=== PATIENT | female | born 1975 | race Caucasian/White ===

== ENCOUNTER 2016-12-30 21:42 | Emergency (ER) | payer BC ==
[~2016-12-30] VITALS: Ht 165.1 cm; Wt 108.9 kg
[2016-12-30] MEDS ORDERED: NKM (22:03)
[2016-12-30 22:05] VITALS: BP 118/80
--- NOTE | 2016-12-30 22:19 | Emergency Room Report ---
History of Present Illness General Chief Complaint: Multiple Trauma/Fall Source: Patient Present Illness HPI This is a 41-year-old male who has no significant past medical history. She presents with chief complaint of head injury. She was working outside and sit down a flight of stairs. Hit her head against the steps. No loss of consciousness. Onset was acute and occurred about an hour ago. No fever chills but no nausea vomiting. No other injury. Pain is 8/10. Not on blood thinner. Allergies: Coded Allergies: No Known Allergies (Unverified , 12/30/16) Patient History Past Medical History: see triage record, old chart reviewed Past Surgical History: none Pertinent Family History: none Social History: Denies: smoking Last Menstrual Period: 2 weeks ago Now: No Immunizations: other Reviewed Nursing Documentation: PMH: Agreed, PSxH: Agreed Nursing Documentation-PMH Past Medical History: No Stated History Review of Systems Eye: Denies: blurred vision, eye pain ENT: Denies: ear pain, nose congestion, throat swelling Respiratory: Denies: cough, shortness of breath Cardiovascular: Denies: chest pain, palpitations Gastrointestinal: Denies: abdominal pain, diarrhea, nausea, vomiting Musculoskeletal: Denies: back pain, joint pain Skin: Denies: rash Neurological: Reports: headache, Denies: numbness Endocrine: Denies: increased thirst, increased urine Hematologic/Lymphatic: Denies: easy bruising All Other Systems: negative except mentioned in HPI Physical Exam Vital Signs Date Time Temp Pulse Resp B/P Pulse Ox O2 Delivery O2 Flow Rate FiO2 12/30/16 21:56 97.9 75 16 118/80 98 Room Air vitals normal Sp02 EP Interpretation: reviewed, normal General Appearance: well appearing, no apparent distress, alert Head: normocephalic, other - Abrasion to the right parieto-occipital area. No hematoma. No laceration. Eyes: bilateral eye EOMI, bilateral eye PERRL ENT: hearing grossly normal, normal pharynx Neck: full range of motion, supple, no meningismus Respiratory: chest non-tender, lungs clear, normal breath sounds Cardiovascular #1: regular rate, rhythm, no murmur Gastrointestinal: normal bowel sounds, non tender, no mass, no organomegaly, no bruit, non-distended Musculoskeletal: back normal, gait/station normal, normal range of motion Psychiatric: mood/affect normal Skin: warm/dry Medical Decision Making Diagnostic Impression: Primary Impression: Head injury, acute, without loss of consciousness Qualified Codes: S09.90XA - Unspecified injury of head, initial encounter ER Course Patient presents with head injury and mild contusion. No fracture dislocation. No bleeding. We'll discharge home. CT/MRI/US Diagnostic Results CT/MRI/US Diagnostic Results : Imaging Test Ordered: CT head Impression negative per radiologist. Last Vital Signs Date Time Temp Pulse Resp B/P Pulse Ox O2 Delivery O2 Flow Rate FiO2 12/30/16 21:56 97.9 75 16 118/80 98 Room Air Status: improved Disposition: HOME, SELF-CARE Condition: Stable Scripts Ibuprofen* (MOTRIN*) 600 Mg Tablet 600 MG ORAL THREE TIMES A DAY, #30 TAB 0 Refills Prov: MATILDE LEMONS M.D. 12/30/16 Additional Instructions: Followup with your DrJustin in 7 days. Return if symptom worsen. MATILDE LEMONS M.D. Dec 30, 2016 22:19
[2016-12-30] MEDS ORDERED: Norco 5mg/325mg tab ORAL ONE (22:30)
[2016-12-30] MEDS ORDERED: IBUPROFEN600 MG ORAL (23:13)
[2016-12-30 23:25] VITALS: BP 154/84
--- NOTE | 2016-12-31 09:09 | Diagnostic Imaging Report ---
Indications: Fall, head trauma, pain Technique: Continuous helical CT imaging of the brain was performed with automatic exposure control on a Siemens sensation [address] scanner. Axial and coronal images were reconstructed at 5 mm slice thickness and interval. CTDI volume(s): 70 mGy Total DLP: 1337 mGy-cm Findings: There are Comparison: None. Motion artifact grades images.. No evidence of mass or hemorrhage, other attenuation abnormality, mass effect, midline shift, hydrocephalus or increased intracranial pressure. Bone window images are unremarkable. Visualized paranasal sinuses and mastoid air cells are clear. Right posterior parietal scalp swollen and increased attenuation. IMPRESSION: Right posterior parietal scalp hematoma Otherwise negative noncontrast CT scan of the brain , limited as described. This correlates with [facility] preliminary report. The CT scanner at [facility] is accredited by the [employer] and the scans are performed using protocols designed to limit radiation exposure to as low as reasonably achievable to attain images of sufficient resolution adequate for diagnostic evaluation.
== END 2016-12-30 23:25 | disposition home or self-care (01) ==
LOC: EMR 22:15
DX: S00.01XA Abrasion of scalp, initial encounter (principal); W10.9XXA Fall (on) (from) unspecified stairs and steps, initial encounter; Y92.009 Unspecified place in unspecified non-institutional (private) residence as the place of occurrence of the external cause; R51 Headache; Z88.0 Allergy status to penicillin
CPT/HCPCS: 70450; 99284